=== PATIENT | female | born 2000 | race Caucasian/White ===

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

== ENCOUNTER 2019-04-07 17:12 | Emergency (ER) | payer SELFPAY | END 2019-04-07 21:17 | disposition home or self-care (01) | LOC: MED 17:12 | DX: S33.5XXA Sprain of ligaments of lumbar spine, initial encounter (principal); X58.XXXA Exposure to other specified factors, initial encounter; Y93.89 Activity, other specified; Y92.89 Other specified places as the place of occurrence of the external cause; Y99.8 Other external cause status | CPT/HCPCS: 72100; 99283 ==

== ENCOUNTER 2019-11-26 14:22 | Emergency (ER) | payer MEDICAID ==
[~2019-11-26] VITALS: Ht 162.6 cm; Wt 69.9 kg
[2019-11-26 14:27] VITALS: BP 156/91
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
[2019-11-26 15:00] LABS: BASOPHILS % (AUTO) 0.5 % (0.0-2.0); EOSINOPHILS % (AUTO) 0.2 % (0.0-4.0); HEMATOCRIT 42.4 % (36-48); HEMOGLOBIN 14.6 g/dL (12.0-16.0); LYMPHOCYTES # (AUTO) 1.4 K/uL (2.5-16.5); LYMPHOCYTES % (AUTO) 17.2 % (20.5-51.1); MEAN CORPUSCULAR HEMOGLOBIN 37 pg (27-31); MEAN CORPUSCULAR HGB CONC 35 g/dL (33-37); MEAN CORPUSCULAR VOLUME 107.2 fL (80-94); MONOCYTES # (AUTO) 0.4 K/uL (0.8-1.0); MONOCYTES % (AUTO) 4.6 % (1.7-9.3); NEUTROPHILS # (AUTO) 6.3 K/uL (1.8-7.7); NEUTROPHILS % (AUTO) 77.5 % (42.2-75.2); PLATELET COUNT (AUTO) 309 K/uL (140-450); RED BLOOD CELL COUNT(AUTO) 3.96 MIL/uL (4.20-5.40); RED CELL DISTRIBUTION WIDTH 12.4 % (11.6-13.7); WHITE BLOOD COUNT (AUTO) 8.2 K/uL (4.5-11.0)
[2019-11-26] MEDS: NACL 0.9% 1,000 ML IV ONE (15:00)
[2019-11-26] MEDS: ONDANSETRON 4 MG/2 ML VIAL IVP ONE (15:01)
[2019-11-26 15:18] LABS: BARBITURATE, URINE NEGATIVE ng/ml (NEG <=200); BENZODIAZEPINE, URINE NEGATIVE ng/mL (NEG <=200); CANNABINOID, URINE POSITIVE ng/mL (NEG <=50); COCAINE, URINE NEGATIVE ng/mL (NEG <=300); OPIATE, URINE NEGATIVE ng/mL (NEG <=2000); PHENCYCLIDINE SCREEN,URINE NEGATIVE ng/mL (NEG <=25)
--- NOTE | 2019-11-26 15:30 | NUR ---
PT RESTING WITH EYES CLOSED, BREATHING EVEN AND UNLABORED
[2019-11-26 15:35] LABS: ALBUMIN 5.1 g/dL (3.4-5.0); ANION GAP 24.8 (8-16); CARBON DIOXIDE 20.1 mmol/L (21-32); CREATININE 0.9 mg/dL (0.6-1.3); TOTAL BILIRUBIN 0.6 mg/dL (0.0-1.0)
[2019-11-26 16:08] LABS: POTASSIUM 2.9 mmol/L (3.5-5.1)
[2019-11-26] MEDS: POTASSIUM CHLORIDE 10 MEQ TABER PO ONE (16:47)
[2019-11-26 16:48] VITALS: BP 115/51
--- NOTE | 2019-11-26 16:48 | NUR ---
Patient discharged with v/s stable. Written and verbal after care instructions about hypokalemia, n/v given and explained. Patient alert, oriented and verbalized understanding of instructions. Ambulatory with steady gait. All questions addressed prior to discharge. ID band removed. Patient advised to follow up with PMD. Rx of zofran and potassium given. Patient educated on indication of medication including possible reaction and side effects. Opportunity to ask questions provided and answered.
== END 2019-11-26 16:48 | disposition home or self-care (01) ==
LOC: MED 14:22
DX: R11.2 Nausea with vomiting, unspecified (principal)
CPT/HCPCS: 36415; 80053; 80305; 81002; 81025; 85025; 96361; 96374; 99283; J2405

== ENCOUNTER 2019-11-26 21:45 | Emergency (ER) | payer MEDICAID ==
[~2019-11-26] VITALS: Ht 162.6 cm; Wt 48.6 kg
[2019-11-26 21:53] VITALS: BP 119/81
--- NOTE | 2019-11-26 21:59 | NUR ---
PT AMBULATED TO BED 12 WITH STEADY GAIT.
--- NOTE | 2019-11-26 22:10 | NUR ---
CHADWICK MCCARTY ASSESSED AND EVALUATED PT. NO NURSING INTERVENTIONS NEEDED AT THIS TIME.
[2019-11-26 22:15] VITALS: BP 119/81
--- NOTE | 2019-11-26 22:15 | NUR ---
Patient discharged with v/s stable. Written and verbal after care instructions given and explained. Patient alert, oriented and verbalized understanding of instructions. Ambulatory with steady gait. All questions addressed prior to discharge. ID band removed. Patient advised to follow up with PMD. Rx of XANEX given. Patient educated on indication of medication including possible reaction and side effects. Opportunity to ask questions provided and answered.
== END 2019-11-26 22:15 | disposition home or self-care (01) ==
LOC: MED 21:45
DX: F41.1 Generalized anxiety disorder (principal); F12.90 Cannabis use, unspecified, uncomplicated
CPT/HCPCS: 99283

== ENCOUNTER 2019-11-29 15:15 | Emergency (ER) | payer MEDICAID ==
[~2019-11-29] VITALS: Ht 162.6 cm; Wt 48.5 kg
[2019-11-29 15:33] VITALS: BP 130/69
--- NOTE | 2019-11-29 15:40 | NUR ---
Pt ambulated to bed 11
--- NOTE | 2019-11-29 15:48 | NUR ---
19 y/o female from home c/o n/v and anxiety since yesterday. Pt states she was seen at [facility] on november 25 for anxiety and decreased potassium, was given prescription but was unable to obtain due to no insurance. Denies diarrhea. Denies any pain or SOB at this time. Skin warm, dry, and intact. VSS medhx: seizure
--- NOTE | 2019-11-29 15:50 | NUR ---
LEYDA Canchola at bedside examining pt
[2019-11-29] MEDS ORDERED: ONDANSETRON 4 MG ODT PO ONE (15:55)
--- NOTE | 2019-11-29 16:06 | NUR ---
LEYDA Canchola at bedside re-evaluating pt
[2019-11-29 16:20] VITALS: BP 130/69
--- NOTE | 2019-11-29 16:20 | NUR ---
Patient discharged with v/s stable. Written and verbal after care instructions given and explained. Patient alert, oriented and verbalized understanding of instructions. Ambulatory with steady gait. All questions addressed prior to discharge. ID band removed. Patient advised to follow up with PMD. Rx of Zofran 4mg and Reglan 10mg given. Patient educated on indication of medication including possible reaction and side effects. Opportunity to ask questions provided and answered.
== END 2019-11-29 16:20 | disposition home or self-care (01) ==
LOC: MED 15:15
DX: R11.2 Nausea with vomiting, unspecified (principal); F41.9 Anxiety disorder, unspecified; F12.90 Cannabis use, unspecified, uncomplicated
CPT/HCPCS: 81002; 81025; 99283; Q0162

== ENCOUNTER 2019-12-05 14:49 | Emergency (ER) | payer MEDICAID ==
[~2019-12-05] VITALS: Ht 162.6 cm; Wt 49.4 kg
[2019-12-05 14:58] VITALS: BP 144/67
--- NOTE | 2019-12-05 15:08 | NUR ---
pt c/o r hand pain x 1 week after anxiety attack. pt denies injury to r hand. states it feels very "tense".Pt aox4, afibrile , ambulatory with steady gait , no rom of rt extremity. hx: anxiety, hypokalemia
--- NOTE | 2019-12-05 15:11 | NUR ---
george mckinney at bedside evalauting pt.
--- NOTE | 2019-12-05 15:27 | NUR ---
applied wrist brace to right wrist without any issues
[2019-12-05 16:05] VITALS: BP 132/62
--- NOTE | 2019-12-05 16:06 | NUR ---
Patient discharged with v/s stable. Written and verbal after care instructions given and explained. Patient alert, oriented and verbalized understanding of instructions. Ambulatory with steady gait. All questions addressed prior to discharge. ID band removed. Patient advised to follow up with PMD. Rx of Ibu given. Patient educated on indication of medication including possible reaction and side effects. Opportunity to ask questions provided and answered.
== END 2019-12-05 16:06 | disposition home or self-care (01) ==
LOC: MED 14:49
DX: M25.531 Pain in right wrist (principal); R03.0 Elevated blood-pressure reading, without diagnosis of hypertension; F41.9 Anxiety disorder, unspecified
CPT/HCPCS: 99283

== ENCOUNTER 2020-04-06 23:49 | Emergency (ER) | payer MEDICAID, OTHER ==
[~2020-04-06] VITALS: Ht 162.6 cm; Wt 52.2 kg
[2020-04-06 23:52] VITALS: BP 145/79
--- NOTE | 2020-04-07 00:02 | NUR ---
PT AMBUALTED TO BED 12 WITH STEADY GAIT.
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
--- NOTE | 2020-04-07 00:06 | NUR ---
ERMD AT BEDSIDE EVALUATING PT.
[2020-04-07] MEDS ORDERED: NACL 0.9% 1,000 ML IV ONE (00:10)
[2020-04-07] MEDS ORDERED: diphenhydrAMINE 50 MG/ML VIAL IVP ONE (00:10)
--- NOTE | 2020-04-07 00:29 | NUR ---
PT TAKEN TO CT VIA W/C.
[2020-04-07] MEDS ORDERED: LORazepam 2 MG/ML VIAL IVP ONE (01:05)
--- NOTE | 2020-04-07 01:09 | NUR ---
BRENDOND MADE AWARE OF PT HEART RATE: 144. PER PT HER HEART RATE IS NORMALLY FAST. "I HAVE ANXIETY." BRENDOND GAVE NEW ORDER FOR ATIVAN IVP. PT REMAINS ON TRUCK BRACER.
--- NOTE | 2020-04-07 01:32 | NUR ---
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 HR: 129. ERMD MADE AWARE.
[2020-04-07 02:00] LABS: BARBITURATE, URINE NEGATIVE ng/ml (NEG <=200); BENZODIAZEPINE, URINE NEGATIVE ng/mL (NEG <=200); CANNABINOID, URINE POSITIVE ng/mL (NEG <=50); COCAINE, URINE NEGATIVE ng/mL (NEG <=300); OPIATE, URINE NEGATIVE ng/mL (NEG <=2000); PHENCYCLIDINE SCREEN,URINE NEGATIVE ng/mL (NEG <=25)
--- NOTE | 2020-04-07 02:44 | NUR ---
EKG PERFORMED AT BEDSIDE. EKG READS SINUS TACHYCARDIA @ 142
--- NOTE | 2020-04-07 03:22 | NUR ---
ERMD RE-EVALUATING PT AT BEDSIDE.
--- NOTE | 2020-04-07 03:50 | NUR ---
Patient is currently ambulatory with steady gait, able to walk unassisted. Positive gag reflex. Alert and oriented. Is not driving self for discharge out of facility.
[2020-04-07 04:00] VITALS: BP 129/76
--- NOTE | 2020-04-07 04:00 | NUR ---
Patient does not wish to proceed with medical care recommended by . Patient given information related to possible complications, up to and including , which could occur as a result of leaving hospital at this time. Patient verbalizes understanding of risks involved leaving against medical advice. Patient has signed AMA form.
--- NOTE | 2020-04-09 05:58 | NUR ---
LATE ENTRY---- NS BOLUS DISCONTINUED AT 0130
== END 2020-04-07 04:00 | disposition left against medical advice (07) ==
LOC: MED 23:49
DX: R51.9 Headache, unspecified (principal); R56.9 Unspecified convulsions; V89.2XXA Person injured in unspecified motor-vehicle accident, traffic, initial encounter; Y93.89 Activity, other specified; Y92.89 Other specified places as the place of occurrence of the external cause; Y99.8 Other external cause status
CPT/HCPCS: 70450; 80305; 81002; 81025; 93005; 96361; 96374; 96375; 99285; J1200; J2060; J7030; 99284

== ENCOUNTER 2020-12-29 00:17 | Emergency (ER) | payer OTHER ==
[~2020-12-29] VITALS: Ht 162.6 cm; Wt 59.0 kg
[2020-12-29 00:30] VITALS: BP 123/82
--- NOTE | 2020-12-29 00:30 | NUR ---
TO TENT AMBULATORY
--- NOTE | 2020-12-29 00:50 | NUR ---
SEEN AND EXAMINED BY ERMD WITH ORDERS CARRIED OUT.
[2020-12-29] MEDS ORDERED: ONDANSETRON 4 MG ODT PO ONE (00:55)
[2020-12-29] MEDS ORDERED: KETOROLAC 30 MG/ML VIAL IM ONE (00:55)
--- NOTE | 2020-12-29 00:55 | NUR ---
MEDICATED PER ERMDS ORDER , CARRIED OUT.
--- NOTE | 2020-12-29 01:35 | NUR ---
SWAB FOR NOVEL SENT TO LAB
[2020-12-29 02:20] VITALS: BP 119/79
--- NOTE | 2020-12-29 02:20 | NUR ---
Patient discharged with v/s stable. Written and verbal after care instructions given and explained. Patient verbalized understanding. Ambulatory with steady gait. All questions addressed prior to discharge. Advised to follow up with PMD.
== END 2020-12-29 02:20 | disposition home or self-care (01) ==
LOC: MED 00:17
DX: J06.9 Acute upper respiratory infection, unspecified (principal); Z20.822 Contact with and (suspected) exposure to COVID-19
CPT/HCPCS: 71045; 81025; 96372; 99284; J1885; Q0162; U0003; Q0092

== ENCOUNTER 2022-04-03 05:20 | Emergency (ER) | payer OTHER ==
[~2022-04-03] VITALS: Ht 162.6 cm; Wt 58.1 kg
[2022-04-03 05:33] VITALS: BP 102/63
--- NOTE | 2022-04-03 05:40 | NUR ---
Dr. Moise examining patient.
[2022-04-03] MEDS ORDERED: OXYM15SP72 NS (05:47)
[2022-04-03] MEDS ORDERED: AMOX1TAB8 PO (05:47)
[2022-04-03 05:53] VITALS: BP 102/63
--- NOTE | 2022-04-03 05:53 | NUR ---
Patient discharged with v/s stable. Written and verbal after care instructions given and explained. Patient alert, oriented and verbalized understanding of instructions. Ambulatory with steady gait. All questions addressed prior to discharge. ID band removed. Patient advised to follow up with PMD. Rx of Afrin and Amox-clav given. Patient educated on indication of medication including possible reaction and side effects. Opportunity to ask questions provided and answered.
== END 2022-04-03 05:53 | disposition home or self-care (01) ==
LOC: MED 05:20
DX: J01.90 Acute sinusitis, unspecified (principal)
CPT/HCPCS: 99283

== ENCOUNTER 2023-02-05 17:16 | Emergency (ER) | payer OTHER ==
[~2023-02-05] VITALS: Ht 162.6 cm; Wt 54.0 kg
[~2023-02-05 17:16] MED LIST: AMOX1TAB8 PO; OXYM15SP72 NS
[2023-02-05 17:36] VITALS: BP 109/68; PULSE 92; RESP 18; TEMP 98.5; O2SAT 100
[2023-02-05] MEDS ORDERED: ERYT5OIN51 OP (18:59)
[2023-02-05 19:06] VITALS: BP 109/68; PULSE 92; RESP 18; TEMP 98.5; O2SAT 100
== END 2023-02-05 19:07 | disposition home or self-care (01) ==
LOC: MED 17:16
DX: H02.89 Other specified disorders of eyelid (principal); Z79.899 Other long term (current) drug therapy; Z79.2 Long term (current) use of antibiotics
CPT/HCPCS: 99283